=== PATIENT | female | born 1935 | race African-American/Black ===

== ENCOUNTER 2019-06-28 06:05 | Day surgery (SDC) | payer MEDICARE, MEDICAID ==
[~2019-06-28] VITALS: Ht 165.1 cm; Wt 67.1 kg
[~2019-06-28 06:05] MED LIST: CALC-30 PO; COD1CAPS7 PO; FERR325T6 PO; HYDR25TA PO; MULT-1146 PO; OLME40TA18 PO
[2019-06-28] MEDS ORDERED: LACTATED RINGERS 1,000 ML IV SCH (07:00)
[2019-06-28 07:47] LABS: BASOPHILS % 0.9 % (0.0-2.0); CHLORIDE 104 mEq/L (98-107); HEMATOCRIT. 41.5 % (36.0-48.0); HEMOGLOBIN. 13.7 g/dL (12.0-16.0); LYMPHOCYTES % 34.4 % (20.0-50.0); MEAN CORPUSCULAR HEMOGLOBIN 28.3 pg (28.0-32.0); MEAN CORPUSCULAR VOLUME 86.1 fL (81.0-99.0); MEAN PLATELET VOLUME 9.8 fl (7.4-10.4); MONOCYTES % 10.6 % (2.0-8.0); NEUTROPHILS % 51.1 % (40.0-76.0); PLATELET 168 x1000/uL (130-400); RED BLOOD CELL COUNT 4.82 mill/uL (4.2-5.4); RED CELL DISTRIBUTION WIDTH 14.4 % (11.6-14.6)
[2019-06-28 07:59] LABS: CLARITY URINE CLEAR (CLEAR); COLOR URINE YELLOW (YELLOW); KETONES URINE NEGATIVE (NEGATIVE); LEUKOCYTE ESTERASE URINE TRACE (NEGATIVE); NITRITE URINE NEGATIVE (NEGATIVE); OCCULT BLOOD URINE NEGATIVE (NEGATIVE); PH URINE 6.5 (4.5-8.0); PROTEIN URINE NEGATIVE (NEGATIVE); SPECIFIC GRAVITY URINE 1.015 (1.005-1.030); UROBILINOGEN URINE 0.2 E.U./dL (0.2-1.0)
[2019-06-28] MEDS ORDERED: MIDAZOLAM HCL 2 MG/2 ML VIAL ONE (08:10)
[2019-06-28] MEDS ORDERED: FENTANYL CITRATE/PF 50MCG/ML 2ML VIAL ONE (08:10)
[2019-06-28] MEDS ORDERED: PROPOFOL 200MG/20ML VIAL IV ONE (08:10)
[2019-06-28] MEDS ORDERED: SUCCINYLCHOLINE CHLORIDE 200MG/10ML IV ONE (08:11)
[2019-06-28] MEDS ORDERED: GLYCOPYRROLATE 0.2 MG/ML 2ML VIAL ONE (08:11)
[2019-06-28] MEDS ORDERED: METOCLOPRAMIDE HCL 10MG/2ML VIAL ONE (08:11)
[2019-06-28] MEDS ORDERED: LIDOCAINE HCL/PF 1% 10 MG/ML 5ML VIAL ONE (08:11)
[2019-06-28] MEDS ORDERED: ONDANSETRON HCL 4MG/2ML INJ ONE (08:11)
[2019-06-28] MEDS ORDERED: DEXT 5%/0.45% NACL KCL 20MEQ/L 1,000 ML IV SCH (08:51)
[2019-06-28] MEDS ORDERED: ONDANSETRON HCL 4MG/2ML INJ IV PRN ×2 (09:00)
[2019-06-28] MEDS ORDERED: MEPERIDINE HCL/PF 25MG/ML CPJ IV PRN (09:00)
[2019-06-28] MEDS ORDERED: MORPHINE SULFATE 2 MG/ML CPJ (NOT FOR IM USE) IV PRN ×2 (09:00)
[2019-06-28] MEDS ORDERED: SODIUM CHLORIDE 0.9% 1,000 ML IV NR (09:49)
== END 2019-06-28 10:30 | disposition home or self-care (01) ==
LOC: OR 06:05
PROVIDERS: ATTEND Specialist
DX: R93.89 Abnormal findings on diagnostic imaging of other specified body structures (principal); N85.8 Other specified noninflammatory disorders of uterus; I10 Essential (primary) hypertension; D64.9 Anemia, unspecified; H47.2 Optic atrophy; Z98.890 Other specified postprocedural states; Z96.653 Presence of artificial knee joint, bilateral; Z88.8 Allergy status to other drugs, medicaments and biological substances; Z79.899 Other long term (current) drug therapy
CPT/HCPCS: 36415; 58558; 80048; 81003; 85025; 88305; 93005; J0330; J2250; J2405; J2704; J2765; J3010; J3490

== ENCOUNTER → 2021-09-07 | Outpatient (CLI) | payer MEDICARE, MEDICAID ==
[~2021-09-07] MED LIST changes: -CALC-30 PO; +COD1CAPS16 PO; -COD1CAPS7 PO; +GADOTERATE MEGLUMINE 5 MMOL/10 ML VIAL IV ONE; -HYDR25TA PO
== END | disposition home or self-care (01) ==
LOC: MRI 12:19
PROVIDERS: ATTEND Neurological Surgery
DX: I67.82 Cerebral ischemia (principal); R51.9 Headache, unspecified
CPT/HCPCS: 70553; A9577

== ENCOUNTER 2023-09-05 15:26 | Emergency (ER) | payer MEDICARE, MEDICAID ==
[~2023-09-05] VITALS: Ht 167.6 cm; Wt 82.0 kg
[~2023-09-05 15:26] MED LIST changes: -GADOTERATE MEGLUMINE 5 MMOL/10 ML VIAL IV ONE
[2023-09-05 15:27] VITALS: TEMP 98.4; O2SAT 99
[2023-09-05 16:12] VITALS: BP 196/83; PULSE 72; RESP 16
[2023-09-05 16:23] LABS: BASOPHILS % 0.5 % (0.0-2.0); HEMATOCRIT. 40.2 % (36.0-48.0); HEMOGLOBIN. 13.2 g/dL (12.0-16.0); LYMPHOCYTES % 23.8 % (20.0-50.0); MEAN CORPUSCULAR HEMOGLOBIN 28.9 pg (28.0-32.0); MEAN CORPUSCULAR HGB CONC 32.9 g/dL (31.0-37.0); MEAN CORPUSCULAR VOLUME 87.9 fL (81.0-99.0); MONOCYTES % 9.7 % (2.0-8.0); PLATELET 171 x1000/uL (130-400); RED BLOOD CELL COUNT 4.57 mill/uL (4.2-5.4); RED CELL DISTRIBUTION WIDTH 13.8 % (11.6-14.6); WHITE BLOOD COUNT 4.8 x1000/uL (4.5-11.0)
[2023-09-05 16:35] LABS: ALANINE AMINOTRANSFERASE 17 IU/L (10-49); ALBUMIN 4.1 g/dL (3.2-4.8); ASPARTATE AMINOTRANSFERASE 26 IU/L (<34); BILIRUBIN TOTAL 0.4 mg/dL (0.1-1.0); CALCIUM 9.4 mg/dL (8.7-10.4); CARBON DIOXIDE 29 mEq/L (21-32); CHLORIDE 104 mEq/L (98-107); CREATININE 1.3 mg/dL (0.6-1.0); GLUCOSE 95 mg/dL (70-105); POTASSIUM 4.7 mEq/L (3.5-5.1); PROTEIN TOTAL 7.6 g/dL (6.0-8.3); SODIUM 139 mEq/L (136-145); UREA NITROGEN BLOOD 21 mg/dL (9-23)
[2023-09-05] MEDS ORDERED: MECL-299 MT (18:31)
== END 2023-09-05 16:50 | disposition home or self-care (01) ==
LOC: ER 15:26
DX: R40.20 Unspecified coma (principal); I10 Essential (primary) hypertension; Z88.5 Allergy status to narcotic agent
CPT/HCPCS: 36415; 80053; 85025; 99284

== ENCOUNTER 2025-04-15 11:39 | Inpatient (IN) | payer MEDICARE, MEDICAID ==
[~2025-04-15] VITALS: Ht 167.6 cm; Wt 54.9 kg
[~2025-04-15 11:39] MED LIST changes: +COD1CAPS PO; -COD1CAPS16 PO; +MECL-299 MT
[2025-04-15 11:41] VITALS: O2SAT 99
[2025-04-15] MEDS: LACTATED RINGERS 1,000 ML IV SCH (12:15)
[2025-04-15] MEDS: PIPERACILLIN/TAZO 3.375G/50ML 50 ML IV STA (12:15)
[2025-04-15 12:24] LABS: BASOPHILS % 0.3 % (0.0-2.0); EOSINOPHILS % 4.1 % (0.0-5.0); HEMATOCRIT. 31.9 % (36.0-48.0); HEMOGLOBIN. 10.8 g/dL (12.0-16.0); LYMPHOCYTES % 16.8 % (20.0-50.0); MEAN PLATELET VOLUME 8.6 fl (7.4-10.4); MONOCYTES % 8.4 % (2.0-8.0); NEUTROPHILS % 70.4 % (40.0-76.0); PLATELET 203 x1000/uL (130-400); RED BLOOD CELL COUNT 3.83 mill/uL (4.2-5.4); RED CELL DISTRIBUTION WIDTH 14.7 % (11.6-14.6)
[2025-04-15 12:41] LABS: CREATININE 0.7 mg/dL (0.6-1.0); UREA NITROGEN BLOOD 8 mg/dL (9-23)
[2025-04-15 12:42] LABS: ASPARTATE AMINOTRANSFERASE 17 IU/L (<34)
[2025-04-15 12:43] LABS: BILIRUBIN DIRECT 0.1 mg/dL (<=3.0); BILIRUBIN TOTAL 0.4 mg/dL (0.1-1.0); PROTEIN TOTAL 5.8 g/dL (6.0-8.3)
[2025-04-15] MEDS ORDERED: ONDANSETRON HCL 4MG/2ML INJ IV PRN (13:00)
[2025-04-15 13:05] LABS: TROPONIN I HIGH SENSITIVITY 104 ng/L (3.0-34)
[2025-04-15] MEDS: CEFTRIAXONE 1GM/50ML 50 ML IV SCH (13:51)
[2025-04-15] MEDS: DEXT 5%/0.45% NACL 1000ML 1,000 ML IV SCH (13:51)
[2025-04-15 15:06] LABS: INR 1.0
[2025-04-15 15:16] LABS: GLUCOSE URINE NEGATIVE (NEGATIVE); KETONES URINE NEGATIVE (NEGATIVE); LEUKOCYTE ESTERASE URINE 2+ (NEGATIVE); NITRITE URINE POSITIVE (NEGATIVE); OCCULT BLOOD URINE NEGATIVE (NEGATIVE); PH URINE 8.0 (4.5-8.0); PROTEIN URINE NEGATIVE (NEGATIVE); SPECIFIC GRAVITY URINE 1.007 (1.005-1.030); UROBILINOGEN URINE 1.0 E.U./dL (0.2-1.0)
[2025-04-15 15:48] LABS: TROPONIN I HIGH SENSITIVITY 118 ng/L (3.0-34)
[2025-04-15 16:00] VITALS: BP 155/68; PULSE 60; RESP 16; TEMP 36.5; O2SAT 99
[2025-04-15 16:09] LABS: CLARITY URINE HAZY (CLEAR); COLOR URINE STRAW (YELLOW)
[2025-04-15 16:10] LABS: RBC URINE NONE SEEN /hpf (0-2); WBC URINE 0-2 /hpf (0-2)
[2025-04-15 16:11] LABS: BACTERIA URINE 3+; SQUAMOUS EPITHELIAL CELL URINE RARE /lpf (RARE/1+)
[2025-04-15] MEDS: ACETAMINOPHEN 325MG TABLET PO PRN (17:08)
[2025-04-15 17:48] VITALS: BP 158/81; PULSE 63; RESP 18; TEMP 36.8072
[2025-04-15 20:00] VITALS: BP 149/75; PULSE 66; RESP 18; TEMP 36.6; O2SAT 96
[2025-04-15] MEDS ORDERED: TRAMADOL 50MG TABLET PO PRN (20:45)
[2025-04-15] MEDS ORDERED: NALOXONE HCL 0.4MG/ML VIAL IV PRN (21:15)
[2025-04-16] VITALS (7 sets, daily range): BP systolic 148–174; BP diastolic 75–92; PULSE 60–93; RESP 18–20; TEMP 31.1–36.9; O2SAT 95–100
[2025-04-16] MEDS: AMLODIPINE 2.5MG TABLET PO SCH (01:29)
[2025-04-16] MEDS ORDERED: ENOXAPARIN 40MG/0.4ML SYR SUBCUT SCH (09:00)
[2025-04-16] MEDS: CEFTRIAXONE 1GM/50ML 50 ML IV SCH (14:50)
[2025-04-16 17:39] LABS: BASOPHILS % 1.0 % (0.0-2.0); EOSINOPHILS % 7.8 % (0.0-5.0); HEMATOCRIT. 38.7 % (36.0-48.0); HEMOGLOBIN. 12.6 g/dL (12.0-16.0); LYMPHOCYTES % 24.1 % (20.0-50.0); MEAN PLATELET VOLUME 9.0 fl (7.4-10.4); MONOCYTES % 10.8 % (2.0-8.0); NEUTROPHILS % 56.3 % (40.0-76.0); PLATELET 236 x1000/uL (130-400); RED BLOOD CELL COUNT 4.61 mill/uL (4.2-5.4); RED CELL DISTRIBUTION WIDTH 14.7 % (11.6-14.6)
[2025-04-16 17:57] LABS: CREATININE 0.7 mg/dL (0.6-1.0); UREA NITROGEN BLOOD < 5 mg/dL (9-23)
[2025-04-16 18:02] LABS: T4 FREE 1.44 ng/dL (0.89-1.76)
[2025-04-16] MEDS: ENOXAPARIN 40MG/0.4ML SYR SUBCUT SCH (18:26)
[2025-04-16 18:46] LABS: TROPONIN I HIGH SENSITIVITY 146.0 ng/L (3.0-34)
[2025-04-16] MEDS: VANCOMYCIN 1.25GM/250ML IV SCH (19:11)
[2025-04-17] VITALS: BP 139/82; PULSE 72; RESP 20; TEMP 36.1; O2SAT 100
[2025-04-17 04:00] VITALS: BP 140/72; PULSE 60; RESP 16; TEMP 36.3; O2SAT 100
[2025-04-17 08:11] VITALS: BP 152/82; PULSE 62; RESP 16; TEMP 36.7; O2SAT 100
[2025-04-17 14:43] VITALS: BP 140/70; PULSE 70; RESP 16; TEMP 98
[2025-04-17] MEDS ORDERED: VANCOMYCIN 1GM PMX (XELLIA) 200 ML IV SCH (15:00)
[2025-04-17 16:10] LABS: BASOPHILS % 0.9 % (0.0-2.0); EOSINOPHILS % 11.0 % (0.0-5.0); HEMATOCRIT. 35.8 % (36.0-48.0); HEMOGLOBIN. 11.8 g/dL (12.0-16.0); LYMPHOCYTES % 36.4 % (20.0-50.0); MEAN PLATELET VOLUME 8.6 fl (7.4-10.4); MONOCYTES % 8.4 % (2.0-8.0); NEUTROPHILS % 43.3 % (40.0-76.0); PLATELET 238 x1000/uL (130-400); RED BLOOD CELL COUNT 4.28 mill/uL (4.2-5.4); RED CELL DISTRIBUTION WIDTH 15.0 % (11.6-14.6)
[2025-04-17 16:12] LABS: CREATININE 0.6 mg/dL (0.6-1.0); UREA NITROGEN BLOOD < 5 mg/dL (9-23)
[2025-04-17 17:07] VITALS: BP 150/80; PULSE 60
== END 2025-04-17 17:00 | disposition home health service (06) | DRG 314 ==
LOC: ER 11:39 → EDBEDREQSVC 12:49 → EDBEDREQ 12:49 → EDBEDREQTM 12:49 → 6WST 12:50 → ENRESERV 14:20
PROVIDERS: ADMIT Internal Medicine Nephrology; ATTEND Internal Medicine Nephrology
DX: I95.9 Hypotension, unspecified (principal); G93.41 Metabolic encephalopathy; L89.153 Pressure ulcer of sacral region, stage 3; L89.623 Pressure ulcer of left heel, stage 3; L89.613 Pressure ulcer of right heel, stage 3; L89.223 Pressure ulcer of left hip, stage 3; L89.213 Pressure ulcer of right hip, stage 3; E87.0 Hyperosmolality and hypernatremia; E86.0 Dehydration; F03.90 Unspecified dementia, unspecified severity, without behavioral disturbance, psychotic disturbance, mood disturbance, and anxiety; D32.0 Benign neoplasm of cerebral meninges; I10 Essential (primary) hypertension; Z96.651 Presence of right artificial knee joint; R00.1 Bradycardia, unspecified; D64.9 Anemia, unspecified; Z88.5 Allergy status to narcotic agent; Z79.899 Other long term (current) drug therapy
CPT/HCPCS: 36415; 71045; 80048; 80076; 81003; 84439; 84443; 84481; 84484; 85025; 93005; 93306; 93970; 96365; 99291; A4606; J0696; J1650; J2543; J3373